=== PATIENT | male | born 1950 | race Caucasian/White ===

== ENCOUNTER 2016-11-02 09:34 | Outpatient (CLI) | payer BC ==
[~2016-11-02 09:34] MED LIST: CLARITIN10 M2 PO; HYDROCHLOROTHIA25 MG PO; LEVOFLOXACIN250 MG PO; LISINOPRIL10 MG PO
--- NOTE | 2016-11-02 10:16 | DIAGNOSTIC IMAGING REPORT ---
PROCEDURE: CT LUMBAR SPINE W/O CONTRAST INDICATION: ACUTE LUMBAR RADICULOPATHY TECHNIQUE: Noncontrast axial images with sagittal and coronal reformations. COMPARISON: Lumbar spine x-ray 10/05/2016 FINDINGS: Grade 1 L4-5 anterolisthesis. Large spurs throughout the lumbar spine with mild narrowing of all the lumbar discs. No fracture or suspicious osseous lesions. T11-12: Mild disc bulge/spur complex with mild spinal stenosis. No foraminal stenosis. T12-L1: Normal appearance. L1-2: Normal appearance. L2-3: Moderate to broad-based disc bulge/spur complex with mild to moderate bilateral foraminal stenosis. No spinal stenosis. L3-4: Moderate to broad-based disc bulge/spur complex and moderate facet arthropathy. There is moderate bilateral of foraminal and mild spinal stenosis. L4-5: Moderate to broad-based disc bulge and grade 1 anterolisthesis with severe facet arthropathy. There is severe bilateral of foraminal stenosis and mild spinal stenosis. L5-S1: Moderate to broad-based disc bulge and mild facet arthropathy resulting in mild to moderate bilateral foraminal stenosis. No spinal stenosis. IMPRESSION: 1. Severe degenerative changes with multilevel disc bulging 2. T11-12 disc bulge and mild spinal stenosis 3. L2-3 disc bulge with mild to moderate bilateral foraminal stenosis 4. L3-4 disc bulge with moderate bilateral foraminal and mild spinal stenosis 5. Grade 1 L4-5 anterolisthesis with disc bulge and severe bilateral foraminal and mild spinal stenosis 6. L5-S1 disc bulge and mild to moderate bilateral foraminal stenosis All CT scans at this facility use dose modulation, iterative reconstruction, and/or weight-based dosing when appropriate to reduce radiation dose to as low as reasonably achievable.
== END 2016-11-02 23:00 ==
LOC: CT SRH 09:34
DX: M51.37 Other intervertebral disc degeneration, lumbosacral region (principal); M51.34 Other intervertebral disc degeneration, thoracic region; M48.07 Spinal stenosis, lumbosacral region; M47.814 Spondylosis without myelopathy or radiculopathy, thoracic region

== ENCOUNTER 2016-11-12 13:44 | Outpatient (CLI) | payer BC ==
--- NOTE | 2016-11-12 16:19 | DIAGNOSTIC IMAGING REPORT ---
PROCEDURE: CT CERVICAL SPINE W/O CONTRAST INDICATION: RT CERVICAL RADICULAPATHY TECHNIQUE: Noncontrast axial images with sagittal and coronal reformations. COMPARISON: None. FINDINGS: There is spondylosis at C 5/6 and C6-7 with posterior osteophytic ridges and the bilateral foraminal encroachment. No evidence of an acute process or fracture. Alignment is normal. IMPRESSION: 1. Spondylosis C5-6 and C6-7 with osteophytic ridges and bilateral foraminal narrowing.
== END 2016-11-12 23:00 ==
LOC: CT SRH 13:44
DX: M47.812 Spondylosis without myelopathy or radiculopathy, cervical region (principal); M48.02 Spinal stenosis, cervical region